=== PATIENT | female | born 1970 | race Asian ===

== ENCOUNTER → 2019-12-30 11:24 | Outpatient (CLI) | payer OTHER, SELFPAY ==
--- NOTE | ~2019-12-30 | MM_ITS ---
EXAMINATION: MM screening [facility] BI w jessica HISTORY: Screening mammogram TECHNIQUE: Craniocaudal and mediolateral oblique 3-D tomosynthesis images were obtained and synthetic 2-D images were generated. CAD analysis was submitted and interpreted. COMPARISON: 11/19/2018, 10/08/2017, 08/28/2016 BREAST PARENCHYMAL COMPOSITION: The breasts are heterogeneously dense, which may obscure small masses . FINDINGS: There is no evidence of suspicious mass, calcification, or architectural distortion to sugg est malignancy in either breast. There has been no suspicious interval change. IMPRESSION: 1. No mammographic evidence of malignancy. 2. Recommend routine screening mammography in one year. BI-RADS Category 1: Negative Reviewed, dictated and finalized at location A. HING MANAGER
== END ==
PROVIDERS: PCP Internal Medicine; Visit Provider Advanced Practice Midwife
DX: Z12.31 Encounter for screening mammogram for malignant neoplasm of breast (principal)
CPT/HCPCS: 77063; 77067

== ENCOUNTER → 2021-02-08 04:50 | Outpatient (CLI) | payer OTHER, SELFPAY ==
[2021-02-08 19:22] LABS: SARS-CoV-2 RNA PCR Negative
== END ==
PROVIDERS: PCP Internal Medicine; Visit Provider Internal Medicine Gastroenterology
DX: Z01.812 Encounter for preprocedural laboratory examination (principal); Z20.822 Contact with and (suspected) exposure to COVID-19
CPT/HCPCS: C9803; U0003; U0005

== ENCOUNTER 2021-02-11 00:53 | Day surgery (SDC) | payer OTHER, SELFPAY ==
[2021-01-29 12:09] VITALS: BMI 28.4
[2021-02-11 08:45] VITALS: BP 129/92; PULSE 75; RESP 18; TEMP 36.6; O2SAT 100; BMI 27.6
[2021-02-11] MEDS: LACTATED RINGERS 1,000 ML 150 ML IV CONT (08:57)
--- NOTE | 2021-02-11 09:04 | WPDANESEPPF ---
Anes - Initial Pre Proc Eval Procedure: Operation Date: 02/11/21 09:30 Proposed Procedures p Screening Colonoscopy - Daryl Ram MD Date/Time: 02/11/21 09:04 Surgeon: Daryl Ram MD Pre Op Diagnosis: Neoplasm Screening Patient Data Age: 50 Gender: F Height: 5 ft Weight: 64.1 kg Last Vital Signs Temp 97.8 F 02/11/21 08:45 Pulse 75 02/11/21 08:45 Resp 18 02/11/21 08:45 BP 129/92 H 02/11/21 08:45 Pulse Ox 100 02/11/21 08:45 Allergies Allergy/AdvReac Type Severity Reaction Status Date / Time No Known Allergies Allergy Verified 02/11/21 08:41 Home Medications Medication Instructions Recorded Confirmed Type No Home Medications 01/29/21 02/11/21 History Patient hx anesthesia problems: none Family hx anesthesia problems: none PMFSH Past Medical History Medical History (Updated 02/11/21 @ 09:02 by Ritchie Austin MD) Hyperlipidemia Family History Family History Mother Patient's mother is in good health Father Patient's father is in good health Social History Social History Smoking status: Never smoker Second hand tobacco smoke exposure: Yes Alcohol intake: never Substance use type: does not use Living arrangements: with family Spiritual care concerns: No Anes - Eval Final PreProcedure Day of Procedure 02/11/21 09:04 Patient weight: normal Heart: regular rate and rhythm Lungs: clear to auscultation Airway: Mallampati scale class II Neurological: alert and oriented Last oral intake: >/= 8 hours ASA classification: II Emergent: no Anesthetic plan: proceed Anesthesia type and monitoring: general GIVS and standard monitoring Informed Consent: The patient's anesthetic plan and its attendant risks and benefits were discussed with the patient/family/POA. Questions were solicited and answers provided to the satisfaction of the patient/family/POA.
--- NOTE | 2021-02-11 09:27 | PM.HPGS ---
History of Present Illness History of Present Illness Consent: Risks, benefits, and alternatives have been discussed and questions answered. Patient agrees to proceed with procedure. Chief complaint: Neoplasm Screening Narrative: Jose Antonio Granados is a 50 year old female here for first screening colonoscopy Review of Systems Constitutional: Constitutional: Denies headache(s) and Denies weakness Eyes: Eyes: Denies blurry vision ENT: Reports Normal hearing present, Denies headache(s) and Denies neck pain Cardiovascular: Cardiovascular: Denies chest pain and Denies dyspnea Respiratory: Respiratory: Denies dyspnea Gastrointestinal: Gastrointestinal: Reports no additional gastrointestinal complaints Genitourinary: Genitourinary: Denies dysuria Musculoskeletal: Musculoskeletal: Denies neck pain Integumentary/Breasts: Skin/Breast: Denies dry skin Neurologic: Reports Normal hearing present, Denies headache(s) and Denies weakness Psychiatric: Psychiatric: Denies anxiety Endocrine: Endocrine: Denies change in body appearance Hematologic/Lymphatic: Hematologic/Lymphatic: Denies easy bleeding Allergic/Immunologic: Allergic/Immunologic: Denies urticaria [facility] Past Medical History Medical History (Updated 02/11/21 @ 09:28 by Daryl Ram MD) Colon cancer screening Hyperlipidemia Family History Family History Mother Patient's mother is in good health Father Patient's father is in good health Social History Social History Smoking status: Never smoker Second hand tobacco smoke exposure: Yes Alcohol intake: never Substance use type: does not use Living arrangements: with family Spiritual care concerns: No Meds Home Medications and Allergies Home Medications Medication Instructions Recorded Confirmed Type No Home Medications 01/29/21 02/11/21 History Allergies Allergy/AdvReac Type Severity Reaction Status Date / Time No Known Allergies Allergy Verified 02/11/21 08:41 Vital Signs Vital Signs - 24 hr 02/11/21 08:45 Temperature 97.8 F Pulse Rate 75 Respiratory Rate 18 Blood Pressure 129/92 H Pulse Oximetry 100 Exam Const: General: comfortable and no acute distress HENMT: General nose exam: Normal nares present Eyes: General: appearance normal, both eyes and all related structures Neck: Neck: no JVD Resp: Auscultation: clear to auscultation bilaterally Cardio: Rate: regular rate Rhythm: regular rhythm GI: Inspection: non-distended GI Palp: Yes Soft to palpation Skin: General skin exam: normal color Neuro: General: gait normal Speech: normal speech Extrem: General: normal to inspection Psych: Mental Status: mental status grossly normal Assessment and Plan Assessment and plan (1) Colon cancer screening: Code(s): Z12.11 - Encounter for screening for malignant neoplasm of colon Status: Acute Assessment and Plan: proceed with colonoscopy
[2021-02-11 09:47] VITALS: BP 91/53; PULSE 57; RESP 20; O2SAT 100
[2021-02-11 09:57] VITALS: BP 85/56; PULSE 55; RESP 16; O2SAT 100
[2021-02-11 10:07] VITALS: BP 122/74; PULSE 50; O2SAT 100
== END 2021-02-11 10:29 | disposition home or self-care (01) ==
PROVIDERS: PCP Internal Medicine; Visit Provider Internal Medicine Gastroenterology
PROC: 0DJD8ZZ Inspection of Lower Intestinal Tract, Via Natural or Artificial Opening Endoscopic (ICD-10-PCS; CPT 45378; principal; 2021-02-11 09:30)
DX: Z12.11 Encounter for screening for malignant neoplasm of colon (principal); K63.5 Polyp of colon; K64.8 Other hemorrhoids; K57.30 Diverticulosis of large intestine without perforation or abscess without bleeding; E78.5 Hyperlipidemia, unspecified
CPT/HCPCS: 45385; 88305; C9803; J2704; J7120; U0003; U0005

== ENCOUNTER → 2021-03-08 12:25 | Outpatient (CLI) | payer OTHER, SELFPAY ==
--- NOTE | ~2021-03-08 | MM_ITS ---
EXAMINATION: MM screening [facility] BI w jessica HISTORY: Screening mammogram TECHNIQUE: Craniocaudal and mediolateral oblique 3-D tomosynthesis images were obtained and synthetic 2-D images were generated. CAD analysis was submitted and interpreted. COMPARISON: 12/30/2019, 11/19/2018, 10/08/2017 bilateral digital screening mammogram examinations BREAST PARENCHYMAL COMPOSITION: The breasts are heterogeneously dense, which may obscure small masses . FINDINGS: There is no evidence of suspicious mass, calcification, or architectural distortion to sugg est malignancy in either breast. There has been no suspicious interval change. IMPRESSION: 1. No mammographic evidence of malignancy. 2. Recommend routine screening mammography in one year. BI-RADS Category 1: Negative Reviewed, dictated and finalized at location A.
== END ==
PROVIDERS: Visit Provider Advanced Practice Midwife
DX: Z12.31 Encounter for screening mammogram for malignant neoplasm of breast (principal)
CPT/HCPCS: 77063; 77067

== ENCOUNTER → 2022-07-18 11:17 | Outpatient (CLI) | payer OTHER, SELFPAY ==
--- NOTE | ~2022-07-18 | MM_ITS ---
EXAMINATION: MM screening [facility] BI w jessica HISTORY: Screening mammogram TECHNIQUE: Craniocaudal and mediolateral oblique 3-D tomosynthesis images were obtained and synthetic 2-D images were generated. CAD analysis was submitted and interpreted. COMPARISON: 03/08/2021, 12/30/2019, 11/19/2018 bilateral screening mammogram examinations BREAST PARENCHYMAL COMPOSITION: The breasts are heterogeneously dense, which may obscure small masses . FINDINGS: There is no evidence of suspicious mass, calcification, or architectural distortion to sugg est malignancy in either breast. There has been no suspicious interval change. IMPRESSION: 1. No mammographic evidence of malignancy. 2. Recommend routine screening mammography in one year. BI-RADS Category 1: Negative Reviewed, dictated and finalized at location A.
--- NOTE | ~2022-07-18 | DEXA_ITS ---
Bone Density Report Name: DANIELA RICHARDS Age: 51 Sex: Female Ethnicity: Date of : 1970 Indication: postmenopausal; screening for osteoporosis; height loss; Referring Provider: Meghan Johnson Study: Bone densitometry was performed. Exam Date: July 18, 2022 Accession number: [id number] Bone Density: Region BMD T-score Z-score Classification AP Spine (L1-L4) 1.000 -0.4 0.5 Normal Femoral Neck (Left) 0.710 -1.2 -0.3 Osteopenia Total Hip (Left) 0.925 -0.1 0.4 Normal Femoral Neck (Right) 0.802 -0.4 0.5 Normal Total Hip (Right) 0.983 0.3 0.9 Normal Total Hip Mean 0.954 0.1 0.7 Normal World Health Organization criteria for BMD impression classify patients as: Normal (T-score at or above -1.0), Osteopenia (T-score between -1.0 and -2.5), or Osteoporosis (T-score at or below -2.5). 10-year Fracture Risk(1): Major Osteoporotic Fracture 2.7% Hip Fracture 0.2% Reported Risk Factors: [place] (), Neck BMD=0.710, BMI=29.7 (1) FRAX(R) Version 3.08. Fracture probability calculated for an untreated patient. Fracture probability may be lower if the patient has received treatment. Clinical Information Provided by Patient: Has used the following medications: Calcium, calcium includes vit D, MTV Patient maximum height was 61.75 Menopause Age: 49 No regular weight bearing exercise Does not regularly consume dairy products Drinks caffeinated beverages Onset of menses at age 11 Number of children 1 Impression: The patient has low bone mass, based on the Left Femoral Neck T-score. The patient has an estimated ten-year risk of hip fracture of 0.2% and an estimated ten-year risk of major fracture of 2.7%, based on the WHO FRAX algorithm. Discussion: BONE DENSITY IS LOW AT ONE OR MORE SKELETAL SITES. This patient's lowest T-score is low at one or more skeletal sites. It meets the World Health Organization's (WHO) criteria for ?low bone mass? (T-score between -1.0 and -2.5). The patient's 10-year risk of fracture as calculated by FRAX is less than the threshold where pharmacological therapy is recommended by the National Osteoporosis Foundation (NOF). However, all treatment decisions require clinical judgment and consideration of individual patient factors, including patient preferences, comorbidities, previous drug use, risk factors not captured in the FRAX model (e.g., frailty, falls, vitamin D deficiency, increased bone turnover, interval significant decline in bone density) and possible under or overestimation of fracture risk by FRAX. The patient should follow a healthful lifestyle (good nutrition with adequate calcium and vitamin D, and appropriate weight-bearing exercise). Follow-Up: Consider repeating this study in 2 to 3 years to reassess this patient's status, or sooner if there is
== END ==
PROVIDERS: PCP Internal Medicine; Visit Provider Advanced Practice Midwife
DX: Z12.31 Encounter for screening mammogram for malignant neoplasm of breast (principal); Z78.0 Asymptomatic menopausal state; M85.852 Other specified disorders of bone density and structure, left thigh
CPT/HCPCS: 77063; 77067; 77080

== ENCOUNTER 2023-08-08 11:18 | Outpatient (CLI) | payer OTHER, SELFPAY ==
--- NOTE | ~2023-08-08 | CT_ITS ---
EXAMINATION: CT abdomen pelvis w con DATE: 08/08/2023 11:51 INDICATION: Epigastric abdominal pain TECHNIQUE: Computed tomography (CT) of the abdomen and pelvis was performed with 100 CC Omnipaque 350 intravenous contrast. Automated exposure control and iterative reconstruction technique were employe d. Exam dose: 524.36 mGy-cm total exam DLP. COMPARISON: None. FINDINGS: Large type IV paraesophageal hiatal hernia. There is associated mild compressive atelectasi s at the left lung base. The lung bases are otherwise clear. Normal heart size. No pericardial or pleural effusion. Diffuse hepatic steatosis. 9.5 mm lateral segment left hepatic cyst. The gallbladder appears unremarkable. No gallbladder wall thickening or pericholecystic fluid or fat stranding. No bile duct or pancreatic duct dilatation. No pancreatic mass lesion or pancreatic calcif ication. No splenic mass lesion or splenomegaly. Normal morphology of the adrenal glands. The kidneys are unremarkable. No renal mass lesion or urinary tract calculus or hydroureteronephrosis . The uterus, adnexal areas and urinary bladder are unremarkable. There is atherosclerotic calcification of the abdominal aorta. No intraperitoneal or retroperitoneal or pelvic mass lesion or adenopathy or ascites. Normal appendix. Diverticulosis of left and right colon; no CT evidence of diverticulitis. No bowel obstruction, bowel wall thickening, pneumatosis or intraperitoneal free air is detected. Included skeletal structures are unremarkable. IMPRESSION: Type IV paraesophageal hiatal hernia with associated mild compressive atelectasis of the left lower lobe Hepatic steatosis 9.5 mm left hepatic cyst Diverticulosis of left and right colon; no CT evidence of diverticulitis Reviewed, dictated and finalized at Location A. Reviewed, dictated and finalized at location B. IMPRESSION: Type IV paraesophageal hiatal hernia with associated mild compress jose a atelectasis of the left lower lobe Hepatic steatosis 9.5 mm left hepatic cyst Diverticulosis of left and right colon; no CT evidence of diverticulitis
== END 2023-08-08 11:19 | disposition home or self-care (01) ==
LOC: ANHIMG 11:19
PROVIDERS: PCP Student in an Organized Health Care Education/Training Program; Visit Provider Student in an Organized Health Care Education/Training Program
DX: K44.9 Diaphragmatic hernia without obstruction or gangrene (principal); J98.11 Atelectasis; K76.0 Fatty (change of) liver, not elsewhere classified; K57.90 Diverticulosis of intestine, part unspecified, without perforation or abscess without bleeding; K76.89 Other specified diseases of liver
CPT/HCPCS: 74177; Q9967

== ENCOUNTER 2023-08-11 16:50 | Outpatient (CLI) | payer OTHER, SELFPAY ==
--- NOTE | ~2023-08-11 | MM_ITS ---
EXAMINATION: MM screening [facility] BI w jessica HISTORY: Screening mammogram TECHNIQUE: Craniocaudal and mediolateral oblique 3-D tomosynthesis images were obtained and synthetic 2-D images were generated. CAD analysis was submitted and interpreted. COMPARISON: 07/18/2022, 03/08/2021, 12/30/2019 BREAST PARENCHYMAL COMPOSITION:There are scattered areas of fibroglandular density. FINDINGS: No suspicious mass, calcification, or architectural distortion are identified in either evangelina ast to suggest malignancy. There has been no suspicious interval change. IMPRESSION: No mammographic evidence of malignancy. Recommend routine screening mammography in one year. BI-RADS Category 1: Negative Reviewed, dictated and finalized at location .
== END 2023-08-11 16:51 | disposition home or self-care (01) ==
PROVIDERS: PCP Student in an Organized Health Care Education/Training Program; Visit Provider Obstetrics & Gynecology
DX: Z12.31 Encounter for screening mammogram for malignant neoplasm of breast (principal)
CPT/HCPCS: 77063; 77067

== ENCOUNTER 2024-09-02 08:32 | Outpatient (CLI) | payer OTHER, SELFPAY ==
--- NOTE | ~2024-09-02 | US_ITS ---
US abdomen limited INDICATION: Fatty liver disease. PROCEDURE: Realtime right upper abdominal ultrasound. COMPARISON: No prior studies for comparison. FINDINGS: The pancreas is normal without focal mass or pancreatic ductal dilation. Liver echotexture is increased, consistent with fatty infiltration. There is normal directional flow in the portal ve in. The gallbladder is normal without stones, gallbladder wall thickening or pericholecystic fluid. Comm on bile duct measures 3 mm. No sonographic Santana's sign. IMPRESSION: 1: Fatty infiltration of the liver. Reviewed, dictated and finalized at location B.
== END 2024-09-02 08:33 | disposition home or self-care (01) ==
LOC: GOSHIMG 08:33
PROVIDERS: PCP Student in an Organized Health Care Education/Training Program; Visit Provider Student in an Organized Health Care Education/Training Program
DX: K76.0 Fatty (change of) liver, not elsewhere classified (principal)
CPT/HCPCS: 76705

== ENCOUNTER 2024-09-06 15:23 | Outpatient (CLI) | payer OTHER, SELFPAY ==
--- NOTE | ~2024-09-06 | MM_ITS ---
EXAMINATION: MM screening [facility] BI w jessica HISTORY: Screening mammogram TECHNIQUE: Craniocaudal and mediolateral oblique 3-D tomosynthesis images were obtained and synthetic 2-D images were generated. CAD analysis was submitted and interpreted. COMPARISON: 08/11/2023, 07/18/2022, 03/08/2021, 12/30/2019 BREAST PARENCHYMAL COMPOSITION:Not Dense. There are scattered areas of fibroglandular density. FINDINGS: No suspicious mass, calcification, or architectural distortion are identified in either evangelina ast to suggest malignancy. There has been no suspicious interval change. IMPRESSION: No mammographic evidence of malignancy. Recommend routine screening mammography in one year. BI-RADS Category 1: Negative Reviewed, dictated and finalized at location .
== END 2024-09-06 15:24 | disposition home or self-care (01) ==
PROVIDERS: PCP Student in an Organized Health Care Education/Training Program; Visit Provider Obstetrics & Gynecology
DX: Z12.31 Encounter for screening mammogram for malignant neoplasm of breast (principal)
CPT/HCPCS: 77063; 77067

== ENCOUNTER 2024-11-07 09:02 | Outpatient (CLI) | payer OTHER, SELFPAY ==
--- NOTE | ~2024-11-07 | MR_ITS ---
EXAMINATION: MR shoulder LT wo con DATE: 11/07/2024 09:47 INDICATION: Chronic left shoulder pain TECHNIQUE: Magnetic resonance imaging (MRI) of the left shoulder was performed without intravenous co ntrast. Sequences included axial PD-weighted FS FSE, coronal oblique PD-weighted FS FSE, coronal obli que T2-weighted FS FSE, sagittal PD-weighted FS FSE, and sagittal T1-weighted SE. COMPARISON: None. FINDINGS: Coracoacromial arch: The acromion undersurface is curved in morphology (type II). The coracoacromial ligament is normal. M inimal acromioclavicular osteoarthritis. Rotator cuff: Mild supraspinatus and infraspinatus tendinopathy without tear. The teres minor and subscapularis ten dons are normal. Normal rotator cuff muscle bulk and signal. Biceps tendon, glenoid labrum and glenohumeral cartilage: Long head of the biceps tendon is normal. Small region of mild amorphous increased signal consistent with labral degeneration at the 10:30-11:00 position of the posterior superior glenoid labrum. Glenoh umeral cartilage is normal. Fluid: Physiologic amount of fluid in the glenohumeral joint and biceps tendon sheath. No loose osteochondr al bodies. Small amount of fluid in the subacromial/subdeltoid bursa consistent with mild bursitis. Bones: Normal marrow signal with no edema, fracture or abnormal marrow replacing process. IMPRESSION: 1. Mild supraspinatus and infraspinatus tendinopathy without tear. 2. Small region of mild degeneration of the posterior superior glenoid labrum. 3. Mild subacromial/subdeltoid bursitis. Reviewed, dictated and finalized at location B. L MAID
--- NOTE | ~2024-11-07 | MR_ITS ---
EXAMINATION: MR shoulder RT wo con DATE: 11/07/2024 09:34 INDICATION: Chronic right shoulder pain TECHNIQUE: Magnetic resonance imaging (MRI) of the right shoulder was performed without intravenous c ontrast. Sequences included axial PD-weighted FS FSE, coronal oblique PD-weighted FS FSE, coronal obl ique T2-weighted FS FSE, sagittal PD-weighted FS FSE, and sagittal T1-weighted SE. COMPARISON: None. FINDINGS: Coracoacromial arch: The acromion undersurface is curved in morphology (type II). The coracoacromial ligament is normal. M ild acromioclavicular osteoarthritis. Rotator cuff: Moderate tendinopathy of the supraspinatus and anterior infraspinatus tendon. Mild tendinopathy more posterior infraspinatus tendon and the subscapularis tendon. No evident rotator cuff tear. The teres minor tendon is normal. Normal rotator cuff muscle bulk and signal. Biceps tendon, glenoid labrum and glenohumeral cartilage: Long head of the biceps tendon is normal. There is a superior, anterior to posterior tear of the nirali oid labrum (SLAP tear) at the 11:00-12:00 position of the superior glenoid labrum. Glenohumeral carti tony is normal. Fluid: Physiologic amount of fluid in the glenohumeral joint and biceps tendon sheath. No loose osteochondr al bodies. Synovitis and small to moderate amount of fluid in the subacromial/subdeltoid bursa consis tent with moderate bursitis. Bones: Normal marrow signal with no edema, fracture or abnormal marrow replacing process. IMPRESSION: 1. Mild to moderate rotator cuff tendinopathy without tear. 2. SLAP tear at the superior glenoid labrum. 3. Moderate subacromial/subdeltoid bursitis. 4. Mild acromioclavicular osteoarthritis. Reviewed, dictated and finalized at location B. 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
== END 2024-11-07 09:03 | disposition home or self-care (01) ==
LOC: MICIMG 09:02
PROVIDERS: PCP Student in an Organized Health Care Education/Training Program; Visit Provider Student in an Organized Health Care Education/Training Program
DX: S43.431A Superior glenoid labrum lesion of right shoulder, initial encounter (principal); G89.29 Other chronic pain; M67.814 Other specified disorders of tendon, left shoulder; M75.52 Bursitis of left shoulder; M19.012 Primary osteoarthritis, left shoulder; M75.31 Calcific tendinitis of right shoulder; M75.51 Bursitis of right shoulder; M19.011 Primary osteoarthritis, right shoulder; X58.XXXA Exposure to other specified factors, initial encounter
CPT/HCPCS: 73221

== ENCOUNTER 2025-07-05 21:03 | Emergency (ER) | payer BC, SELFPAY ==
--- NOTE | ~2025-07-05 | CT_ITS ---
EXAMINATION: CT BRAIN W/O DATE: 07/05/2025 23:03 INDICATION: Dizziness. Hypertension. TECHNIQUE: Computed tomography (CT) of the head was performed without intravenous contrast. The dose-length product was 605.33 mGy-cm. Automated exposure control and iterative reconstruction technique were employed. COMPARISON: No prior studies for comparison. FINDINGS: Normal brain parenchymal volume for age. Normal mcdonald-white differentiation. No acute intracranial hemorrhage, infarction, mass or mass effect. No ventriculomegaly or midline shift. Midline sagittal images demonstrate a normal corpus callosum, craniovertebral junction and sella turcica. Basilar cisterns are patent. Paranasal sinuses and mastoids are pneumatized. No depressed skull fractures. IMPRESSION: 1. No acute intracranial abnormality. Reviewed, dictated and finalized at location O.
[2025-07-05 21:13] VITALS: BP 190/97; PULSE 65; RESP 16; TEMP 36.2; O2SAT 100
--- NOTE | 2025-07-05 22:23 | ECG_ITS ---
Test Date: 2025-07-05 22:51:47 Measurements Intervals [place] Rate: 57 P: 23 RI: 155 QRS: 17 QRSD: 82 T: 16 QT: 452 QTc: 443 Interpretive Statements SINUS BRADYCARDIA LOW QRS VOLTAGE IN PRECORDIAL LEADS BASELINE ARTIFACT- I, II, III, AVR, AVL, AVF, V1-V6 BORDERLINE ECG No previous ECG available for comparison Electronically Signed On 07-06-2025 06:15:04 CDT by Will Daly D.O.
--- OUTSIDE RECORDS SUMMARY | 2025-07-05 22:37 | XMS_ITS | Clinical Summary ---
Author Organization [facility] Address [address] [place] [address] Care Team Providers Care Informix Developer Name Role Phone Unknown, Provider Primary Care Provider Unavaila ble Source Comments [facility],non-owned Affiliates and Associated Physician Practices is amultiple site organization consisting of ambulatory clinics and hospital sitesin [place], [place], [place] and [place]. This disclosure is being madepursuant to the Care Everywhere program and may not contain all information available regarding this patient. Last updated 18.[facility] Encounters Date Type Department Care Team Description 06/22/[address] 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 Gender Identity Not on file Sexual Orientation Not on file Plan of Treatment Health Maintenance Due Date Last Done Comments COLOGUARD (AGES 45-75) - COL ON CA SCREENING 1969 COLON MONITORING 1969 COLONOSCOPY - COLON CA SCREENING 1969 CT COLONOGRAPHY - COLON CA SCREENING 1969 Colorectal Cancer Screening 1969 FIT - COLON CA SCREENING 1969 FLEX SIG - COLON CA SCREENING 1969 HIV SCREENING 1984 DTAP/TDAP/TD VACCINES (1 - Tdap) 1988 HEPATITIS B VACCINE (1 of 3 - 19+ 3-dose series) 1988 PNEUMOCOCCAL VACCINE 50+ (1 of 1 - PCV) 2019 ZOSTER VACCINE (1 of 2) 2019 COVID-19 VACCINE (1 - 2023-2 5 season) 2024 DEPRESSION SCREENING 11/09/2024 INFLUENZA VACCINE (#1) 2025 MAMMOGRAM 09/06/2026 09/06/2024, 08/11/2023, 07/18/2022 PAP SMEAR 07/29/2027 07/29/2024, 07/29/2024 LIPID TESTING 05/05/2030 05/05/2025 HEPATITIS C SCREENING Completed 04/17/2023 HIB VACCINE Aged Out No longer eligi ble based on patient's age to complete this topic HPV VACCINE Aged Out No longer eligi ble based on patient's age to complete this topic MENINGOCOCCAL (Group B) VACCINE SHARED DECISION-MAKING Aged Out No longer eligible based on patient's age to complete this topic MENINGOCOCCAL GROUPS A/C/Y/W VACCINE Aged Out No longer eligible b ased on patient's age to complete this topic Procedures Procedure Name Priority Date/Time Associated Diagnosis Comments DERMATOPATHOLOGY Routine 06/22/2025 3:14 PM CDT US ELASTOGRAPHY Routine 06/09/2025 8:14 AM CDT NAFLD (nonalcoholic fatty liver disease) from Last 3 Months Results * DERMATOPATHOLOGY (06/22/2025 3:14 PM CDT) Case Report Dermatopathology Report Case: [id number] Authorizing Provider: Nataly Ball DO Collected: 06/22/2025 03:14 PM Ordering Location: [facility] - Received: 06/26/2025 02:19 PM DermPath Lab Pathologist: Jena Rodriguez MD Specimen: Skin, left scalp 4:38 PM CDT DERMATOPATHOLOGY LABORATORY Final Diagnosis Specimen A. 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 The specimen consists of a shave biopsy measuring 6x3x1 mm. Jar 0. 4:38 PM CDT DERMATOPATHOLOGY LABORATORY Microscopic Description Specimen A. SKIN, left scalp: Sections show abundant melanin within melanophages around the superficial vascular plexus. MART-1/Melan-A immunohistochemical stain fails to highlight a melanocytic proliferation. Additional deeper sections were obtained and reviewed. 4:38 PM CDT DERMATOPATHOLOGY LABORATORY Disclaimer An external and internal positive and negative controls are appropriate for the histochemical, immunohistochemical and immunofluorescence stain(s) in this case (if any), except where stated explicitly. The performance characteristics of the stain(s) cited in this report were developed and its performance characteristic determined by the Dermatopathology Laboratory at [facility], directed by Dr. Janna Gaytan. These tests need not be, and therefore are not, approved by the [place] Food and Drug Administration. The tests are used for clinical purposes. Billing Codes Specimen Charges Stain Charges 58785 1 52888 1 4:38 PM CDT DERMATOPATHOLOGY LABORATORY Embedded Images 4:38 PM CDT DERMATOPATHOLOGY LABORATORY Pathology/Cytolo gy TISSUE SPECIMEN FROM SKIN / Unknown 06/22/2025 3:14 PM CDT 06/26/2025 2:19 PM CDT us Nataly Ball DO LAB - PATHOLOGY/CYTOLOGY ORDERABLES Final Result DERMATOPATHOLOGY LABORATORY [facility] - Department of Dermatology [address], [address] [phone] * US Elastography (06/09/2025 8:14 AM CDT) Anatomical Region Laterality Modality Abdomen Ultrasound 06/09/2025 8:15 AM CDT Impressions 06/09/2025 10:59 AM CDT Impression: Stiffness Score: Median 5.08 kPa. IQR/Median ratio: 11.1. (Ratio should be less than 30%). These result suggests that in the absence of other known clinical signs, rule out compensated advanced chronic liver disease (cACLD). If there is known clinical signs, May need for test for confirmation. Reference: <5 kPa (1.3 m/sec)- High probability of being normal. <9 kPa (1.7 m/sec)- in the absence of other known clinical signs, rule out compensated advanced chronic liver disease (cACLD). If there is known clinical signs, May need for test for confirmation. 9-13 kPa (1.7-2.1 m/sec)-suggestive of cACLD but need for test for confirmation. >13 kPa (2.1 m/sec)- Rule in cACLD >17 kPa (2.4m/sec)- suggestive of clinically significant portal hypertension (CSPH). > Dictated by Roxana Dove 06/09/2025 8:15 AM > Dictated by Labor Conciliator I, Mulugeta Chester have personally reviewed and interpreted this examination/study. > Interpreting Provider: Mulugeta Chester on 06/09/2025 10:59 AM Narrative 06/09/2025 10:59 AM CDT PROCEDURE: US ELASTOGRAPHY, DATE/TIME OF EXAM: 06/09/2025 8:14 AM, LOCATION [facility] INDICATION: K76.0: NAFLD (nonalcoholic fatty liver disease) ADDITIONAL CLINICAL INFORMATION: Ordering Provider Reason For Exam: NAFLD Technologist Note: Additional: COMPARISON: None. Technique: A limited abdominal ultrasound was performed by using real-time and B-Mode to localize an optimal sampling site, to target only liver tissue. 50Hz Shear Wave pulses were applied and the resulting Shear Wave and Propagation Speed detected with an ultrasonic signal, using US Elastography. Skin to liver capsule distance and liver parenchyma were accessed during the entire examination with the US Elastography. At least ten Shear Waves were produced; individual measurements of each Shear Wave were calculated. Patient tolerated the procedure well and was discharged without incident. Findings: The median liver stiffness score was 5.08 kPa. The Interquartile Range (IQR) to Median ratio all measurement 11.1 %. Procedure Note Mulugeta Chester MD - 06/09/2025 PROCEDURE: US ELASTOGRAPHY, DATE/TIME OF EXAM: 06/09/2025 8:14 AM,LOCATION [facility] INDICATION: K76.0: NAFLD (nonalcoholic fatty liver disease) ADDITIONAL CLINICAL INFORMATION: Ordering Provider Reason For Exam: NAFLD Technologist Note: Additional: COMPARISON: None. Technique: A limited abdominal ultrasound was performed by usingreal-time and B-Mode to localize an optimal sampling site, to target only liver tissue. 50Hz Shear Wave pulses were applied and the resulting Shear Wave and Propagation Speed detected with an ultrasonic signal, using US Elastography. Skin to liver capsule distance and liver parenchyma were accessed during the entire examination with the US Elastography. At least ten Shear Waves were produced; individual measurements of each Shear Wave were calculated. Patient tolerated the procedure well and was discharged withoutincident. Findings: The median liver stiffness score was 5.08 kPa. The Interquartile Range (IQR) to Median ratio all measurement 11.1 %. Impression: Stiffness Score: Median 5.08 kPa. IQR/Median ratio: 11.1. (Ratio shouldbe less than 30%). These result suggests that in the absence of other known clinicalsigns, rule out compensated advanced chronic liver disease (cACLD). If there is known clinical signs, May need for test for confirmation. Reference: <5 kPa (1.3 m/sec)- High probability of being normal. <9 kPa (1.7 m/sec)- in the absence of other known clinical signs, ruleout compensated advanced chronic liver disease (cACLD). If there is known clinical signs, May need for test for confirmation. 9-13 kPa (1.7-2.1 m/sec)-suggestive of cACLD but need for test for confirmation. >13 kPa (2.1 m/sec)- Rule in cACLD >17 kPa (2.4m/sec)- suggestive of clinically significant portal hypertension (CSPH). > Dictated by Roxana Dove 06/09/2025 8:15 AM > Dictated by Labor Conciliator I, Mulugeta Chester have personally reviewed and interpreted this examination/study. > Interpreting Provider: Mulugeta Chester on 06/09/2025 10:59 AM us Pee Rider DO US ORDERABLES Final Re sult from Last 3 Months [place] [facility] [place]: [facility] [id number] [place] [id number] [address] [facility] Care Teams Informix Developer Relationship Specialty Start Date End Date Unknown, Provider PCP - General 06/02/25
--- OUTSIDE RECORDS SUMMARY | 2025-07-05 22:38 | XMS_ITS | Encounter Summary ---
Author Organization [facility] Address [address] [place] [address] Care Team Providers Care Hospital Scientist Name Role Phone Pee Rider DO Primary Care Provider + Encounter Details Date Type Department Care Team (Late st Contact Info) Description 05/08/2025 Results Follow-Up [facility] Family & Internal Medicine [facility] [address] [place] [phone] Pee Rider DO [address] [place], [place] [id number] HEMOGLOBIN, GLYCOSYLATED, VITAMIN B-12, LIPID PANEL, Additional followed-up results: 3 Social History Tobacco Use Types Packs/Day Years Used Date Smoking Tobacco: Never Passive Smoke Exposure: Current Smokeless Tobacco: Never Alcohol Use Standard Drinks/Week Comments Not Currently 0 (1 standard drink = 0.6 oz pur e alcohol) rarely PHQ-2 Answer Date Recorded Patient Health Questionnaire-2 Score 0 05/05/2025 Comments No Sex and Gender Information Value Date Recorded Sex Assigned at Female 05/05/2025 9:03 AM CDT Legal Sex Female 11:44 AM CDT Gender Identity Female 05/05/2025 9:03 AM CDT Sexual Orientation Not on file Occupation Industry Job Start Date Job End Date Not on file Not on file Not on file Not on file documented as of this encounter Plan of Treatment Upcoming Encounters Date Type Department Care Team (Late st Contact Info) Description 07/14/2025 1:00 PM CDT Office Visit [facility] Multispecialty Care - [facility] [address] [facility], [address] [place] [address] Abigail Medrano, HA [address] [facility] [address] [place] [address] 08/04/2025 9:00 AM CDT Office Visit [facility] Family & Internal Medicine - [address] [address] Pee Rider DO [address] [place] [phone] documented as of this encounter Visit Diagnoses Not on filedocumented in this encounter Additional Health Concerns Assessment Noted Time PHQ-9 Depression Total Score: 1 05/05/20 25 9:11 AM CDT documented as of this encounter Care Teams Hospital Scientist Relationship Specialty Start Date End Date Pee Rider DO [address] [place] [id number] PCP - General FAMILY PRACTICE 04/17/23 documented as of this encounter
--- OUTSIDE RECORDS SUMMARY | 2025-07-05 22:38 | XMS_ITS | Clinical Summary ---
Author Organization [facility] Address [address] [place] [phone] Care Team Providers Care Audit Spec Name Role Phone Pee Rider Javier PADRON Primary Care Provide r Allergies No known active allergies Medications multivitamin capsule Take 1 capsule by mouth daily Active omega-3 fatty acids-fish oil 300-1,000 mg capsule Take 2 capsules (2 g total) by mouth daily Active cholecalciferol (VITAMIN D-3) 2000 unit tablet Take 1 tablet (2,000 Units total) by mouth daily Active simethicone (MYLICON) 125 mg chewable tablet Take 1 tablet (125 mg total) by mouth every 6 (six) hours 120 tablet 11 12/18/2023 Active Active Problems Problem Noted Date Diagnosed Date Paraesophageal hernia 12/18/2023 Surgical History Surgery Date Site/Laterality Comments SECTION MOLE REMOVAL back BREAST BIOPSY Left HIATAL HERNIA REPAIR 12/10/2023 - 01/07/2024 Medical History Medical History Date Comments Motion sickness mostly planes/jeimy at Allergic rhinitis spring Dry scalp GERD (gastroesophageal reflux disease) Family History Medical History Relation Name Comments Hypertension Mother Dementia Sister Relation Name Status Comments Father Mother Alive Sister Social History Tobacco Use Types Packs/Day Years Used Date Smoking Tobacco: Never Passive Smoke Exposure: Current Smokeless Tobacco: Never AUDIT-C Answer Date Recorded Q1: How often do you have a drink containing alc ohol? Monthly or less 08/04/2024 Q2: How many drinks containi ng alcohol do you have on a typical day when you are drinking? 1 or 2 08/04/2024 Q3: How often do you have si x or more drinks on one occasion? Never 08/04/2024 Personal Safety Answer Date Recorded Have you ever been in or are you currently in a harmful physical or emotional relationship or is someone making you feel afraid or unsafe? 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 Gender Identity Not on file Sexual Orientation Not on file Obstetrics History Last Filed Vital Signs Vital Sign Reading Time Taken Comments Blood Pressure 144/84 08/04/2024 4:10 PM CDT Pulse 69 08/04/2024 4:10 PM CDT Temperature 36.3 C (97.3 F) 08/04/2024 3:38 PM CDT Respiratory Rate 19 08/04/2024 4:10 PM CDT Oxygen Saturation 100% 08/04/2024 4:10 PM CDT Inhaled Oxygen Concentration - - Weight 63.5 kg (140 lb) 12/18/2023 5:58 AM PARTITION MAKING MACHINE OPERATOR Height 149.9 cm (4' 11) 12/18/2023 5:58 AM PARTITION MAKING MACHINE OPERATOR Body Mass Index 28.28 12/18/2023 5:58 AM PARTITION MAKING MACHINE OPERATOR Plan of Treatment Health Maintenance Due Date Last Done Comments Cervical Cancer Screening 1969 Colon Cancer Screening-Colonoscopy 1969 Depression Screening 1969 Hepatitis C Screening 1969 Hepatitis B Screening 1987 Regular Well Visit/Exam 18-64 1987 Zoster Vaccine (1 of 2) 2019 Covid-19 Vaccine (2023-2 5 season) 2024 10/11/2021, 01/31/2021, 01/10/2021 Breast Cancer Screening-Mammogram 08/12/2024 08/12/2023, 07/18/2022 Influenza Vaccine (#1) 2025 DTaP/Tdap/Td Vaccine (2 - Td or Tdap) 10/09/2033 10/09/2023 Pneumococcal vaccine <65 Aged Out No longer eligible based on patient's age to complete this topic Insurance LOCAL PLUS IN LOCAL PLUS IN Advance Directives For more information, please contact: [phone] * Full Code (Latest Code Status on File) Date Activated Date Inactivated Comments 12/18/2023 12:13 PM 12/19/2023 7:24 PM Care Teams Audit Spec Relationship Specialty Start Date End Date Pee Rider DO [address] [place] [id number] PCP - General Family Medicine 12/18/23
--- OUTSIDE RECORDS SUMMARY | 2025-07-05 22:38 | XMS_ITS | Clinical Summary ---
Author Organization [facility] Address [address] [place] [address] Care Team Providers Care Cigar Head Pegger Name Role Phone Pee Rider Peyton PADRON Primary Care Provider + Allergies Active Allergy Reactions Criticality Noted Date Comments Seasonal Eyes Water & Itch 05/05/2025 Medications multi vitamin/minerals (THERA-M ENHANCED) tablet Take 1 tablet by mouth daily. Active [place] 3 1000 MG Cap Take 2 g by mouth daily. Active Vitamin D3 (VITAMIN D) 50 mcg tablet Take 1 tablet (2,000 Units total) by mouth daily. Active [facility] GAS RELIEF EXTRA STRENGTH 125 MG chewable tablet CHEW 1 TABLET BY MOUTH 4 TIMES A DAY 4 Active clobetasol (TEMOVATE) 0.05 % external solutionIndicatio ns:Rash,Encounter for preventative adult health care examination,Scree atilio for lipid disorders,Screeni ng for endocrine, metabolic and immunity disorder Apply topically 2 (two) times daily. 50 mL Active Active Problems Problem Noted Date Diagnosed Date NAFLD (nonalcoholic fatty liver disease) 024 Epigastric pain 04/17/2023 Hyperlipidemia, unspecified hyperlipidemia type 04/17/2023 Resolved Problems Problem Noted Date Diagnosed Date Resolved Date Paraesophageal hernia 12/18/20232023 Encounters Date Type Department Care Team Description 06/09/2025 Scan [facility] Scanned, [facility] Ultrasound (SCAN) 06/09/2025 Telephone [facility] Family & Internal Medicine [address] [address] Pee Rider, DO Radiology Results 05/22/[address] [phone] Pee Rider, DO Information 05/11/[address] [address] Pee Rider, DO Referral 05/08/2025 Results Follow-Up [address] [phone] Pee Rider, DO HEMOGLOBIN, GLYCOSYLATED, VITAMIN B-12, LIPID PANEL, Additional followed-up results: 3 05/05/2025 9:00 AM CDT Office Visit [address] [address] Pee Rider, DO Hyperlipidemia (Annual exam); Numbness (In both hands, 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 Right works better than left) 05/05/2025 Travel from Last 3 Months Immunizations Immunization Administration Dates Next Due Pneumococcal (Prevnar 20) 08/26/2024 Shingrix 11/08/2024,08/24/2024 Tdap (Adacel) 10/09/2023 Family History Medical History Relation Comments Dementia Father Hypertension Father Hypertension Mother Relation Status Comments Father (Age 84) Mother Alive Social History Tobacco Use Types Packs/Day Years Used Date Smoking Tobacco: Never Passive Smoke Exposure: Current Smokeless Tobacco: Never Tobacco Cessation:Counseling Given: Not Answered Alcohol Use Standard Drinks/Week Comments Not Currently [...] file Not on file Not on file Last Filed Vital Signs Vital Sign Reading Time Taken Comments Blood Pressure 126/74 05/05/2025 8:55 AM CDT Pulse 62 05/05/2025 8:55 AM CDT Temperature 36.7 C (98.1 F) 05/05/2025 8:55 AM CDT Respiratory Rate 16 05/05/2025 8:55 AM CDT Oxygen Saturation 96% 05/05/2025 8:55 AM CDT Inhaled Oxygen Concentration - - Weight 64.9 kg (143 lb) 05/05/2025 8:55 AM CDT Height 149.9 cm (4' 11) 05/05/2025 8:55 AM CDT Body Mass Index 28.88 05/05/2025 8:55 AM CDT Plan of Treatment Upcoming Encounters Date Type Department Care Team (Late st Contact Info) Description 07/14/2025 1:00 PM CDT Office Visit [facility] - [facility] [address] [facility], [address] [place] [phone] Abigail Medrano NP 3 [facility] [address] [place] [phone] 08/04/2025 9:00 AM CDT Office Visit [facility] Family & Internal Medicine - [address] [phone] Pee Rider, DO [address] [place] [address] Health Maintenance Due Date Last Done Comments Hepatitis B Vaccines (1 of 3 - 19+ 3-dose series) 1988 Cervical Cancer Screening González ramos with HPV Testing (Age 30 to 64) Every 5 Years 1999 COVID-19 Vaccine (2023-2 5 season) 2025 10/11/2021, 01/31/2021, 01/10/2021 Postponed from 07/10/2024 (Patient Refused) Mammogram Screening 09/06/2025 09/06/2024, 08/11/2023, 07/18/2022 Colorectal Cancer Screening Colonoscopy (10 Years) 02/11/2026 02/11/2021, 02/11/2021 Annual Physical 05/05/2026 05/05/2025, 04/15/2024 Cervical Cancer Screening Pa p Smear (Age 30 to 64) Every 3 Years 07/29/2027 07/29/2024, 04/04/2022 Cervical Cancer Screening with HPV 07/29/2027 DTaP, Tdap and Td Vaccines ( 2 - Td or Tdap) 10/09/2033 10/09/2023 Hepatitis C Completed 04/17/2023 Pneumococcal Vaccine: 50+ Years Completed 08/26/2024 Zoster Vaccines Completed 11/08/2024, 08/24/2024 PHQ-2 (Physician [place]) Completed 05/05/2025 Meningococcal B Vaccine Aged Out No l onger eligible based on patient's age to complete this topic Meningococcal Vaccine Aged Out No teofilo karen eligible based on patient's age to complete this topic RSV Immunizations Under 20 Months Aged Out No longer eligible b ased on patient's age to complete this topic Procedures Procedure Name Priority Date/Time Associated Diagnosis Comments ULTRASOUND GENERIC (SCAN ORDER) 06/09/2025 CBC W/DIFF AUTOMATED Routine 05/05/2025 10:02 AM CDT Encounter for preventative adult health care examination Screening for lipid disorders Screening for endocrine, metabolic and immunity disorder COMPREHENSIVE METABOLIC PANEL Routine 05/05/2025 10:02 AM CDT Encounter for preventative adult health care examination Screening for lipid disorders Screening for endocrine, metabolic and immunity disorder TSH W/REFLEX Routine 05/05/2025 10:02 AM CDT Encounter for preventative adult health care examination Screening for lipid disorders Screening for endocrine, metabolic and immunity disorder LIPID PANEL Routine 05/05/2025 10:02 AM CDT Encounter for preventative adult health care examination Screening for lipid disorders Screening for endocrine, metabolic and immunity disorder VITAMIN B-12 Routine 05/05/2025 10:02 AM CDT Encounter for preventative adult health care examination Screening for lipid disorders Screening for endocrine, metabolic and immunity disorder Bilateral hand numbness HEMOGLOBIN, GLYCOSYLATED Routine 05/05/2025 10:02 AM CDT Encounter for preventative adult health care examination Screening for lipid disorders Screening for endocrine, metabolic and immunity disorder Bilateral hand numbness COLLECTION VENOUS BLOOD VENIPUNCTURE Routine 05/05/2025 9:37 AM CDT Encounter for preventative adult health care examination Screening for lipid disorders Screening for endocrine, metabolic and immunity disorder MAMMOGRAM GENERIC (SCAN ORDER) 09/06/2024 HEPATITIS C ANTIBODY Routine 04/17/2023 8:32 AM CDT Screening for lipid disorders Screening for endocrine, metabolic and immunity disorder Need for hepatitis C screening test COLONOSCOPY GENERIC (SCAN ORDER) 02/11/2021 from Last 3 Months or Most Recently Relevant to Health Maintenance Results * ULTRASOUND GENERIC (SCAN ORDER) (06/09/2025) Anatomical Region Laterality Modality Other 06/09/2025 us [facility] Scanned SCANNING Final Resu lt * TSH W/REFLEX (05/05/2025 10:02 AM CDT) TSH 1.290 0.358 - 3.740 uIU/ML 05/05/2025 4:52 PM CDT [facility] 05/05/2025 10:0 2 AM CDT Pee Rider DO LABORATORY Final Re sult [facility] [address] [place] [address], [place] [phone] * (ABNORMAL) HEMOGLOBIN, GLYCOSYLATED (05/05/2025 10:02 AM CDT) HGB A1C 6.0 4.5 - 6.2 % 05/05/2025 8:21 PM CDT [facility] ESTIMATED AVG GLUCOSE 126(H) 74 - 106 MG/DL 05/05/2025 8:21 PM CDT [facility] 05/05/2025 10:0 2 AM CDT Pee Rider LABORATORY Final Re sult [facility] [address] [place] [address], [place] [phone] * VITAMIN B-12 (05/05/2025 10:02 AM CDT) VITAMIN B12 S/P/B 707 193 - 986 PG/ML 05/05/2025 4:52 PM CDT [facility] 05/05/2025 10:0 2 AM CDT Pee Rider LABORATORY Final Re sult Performing Organization Address City/[facility]/ZIP Co de Phone Number [facility] [address] [place] [address], [place] [phone] * (ABNORMAL) COMPREHENSIVE METABOLIC PANEL (05/05/2025 10:02 AM CDT) SODIUM S/P/B 143 136 - 145 MMOL/L 05/05/2025 4:52 PM CDT [facility] POTASSIUM S/P/B 4.9 3.5 - 5.1 MMOL/L 05/05/2025 4:52 PM CDT [facility] CHLORIDE S/P/B 105 98 - 107 MMOL/L 05/05/2025 4:52 PM CDT [facility] CO2 29.8 21 - 32 MMOL/L 05/05/2025 4:52 PM CDT [facility] GLUCOSE 101(H) 70 - 99 MG/DL 05/05/2025 4:52 PM CDT [facility] BUN 10 7 - 18 MG/DL 05/05/2025 4:52 PM T [facility] CREATININE S/P/B 0.60 0.55 - 1.02 MG/DL 05/05/2025 4:52 PM [facility] CALCIUM S/P/B 9.9 8.4 - 10.5 MG/DL 05/05/2025 4:52 PM [facility] BILIRUBIN TOTAL S/P/B 1.1(H) 0.2 - 1.0 MG/DL 05/05/2025 4:52 PM [facility] ALKALINE PHOSPHATASE S/P/B 63 41 - 108 U/L 05/05/2025 4:52 PM [facility] AST 20 15 - 37 U/L 05/05/2025 4:52 PM CDT [facility] ALT 29 14 - 59 U/L 05/05/2025 4:52 PM [facility] TOTAL PROTEIN S/P/B 7.4 6.4 - 8.2 G/DL 05/05/2025 4:52 PM [facility] ALBUMIN S/P/B 4.2 3.4 - 5.0 G/DL 05/05/2025 4:52 PM CDT [facility] ANION GAP 8.2 5 - 15 MMOL/L 05/05/2025 4:52 PM T [facility] Comment:REFERENCE RANGE NOT ESTABLISHED OSMOLALITY (CALC) 295 MOSM/KG 025 4:52 PM [facility] Comment:REFERENCE RANGE NOT ESTABLISHED GFR ESTIMATE >90 >90 ML/MIN/1. 73 M2 05/05/2025 4:52 PM [facility] GFR NOTES GFR REFERENCE S: 05/05/2025 4:52 PM CDT [facility] Comment: THE ESTIMATED GFR IS CALCULATED USING THE 2020 CKD-EPI EQUATION. THE FOLLOWING CATEGORIES FOR GRADING RENAL FUNCTION ARE RECOMMENDED BY THE INTERNATIONAL SOCIETY OF NEPHROLOGY (KDIGO 2012 CLINICAL PRACTICE GUIDELINE). G1,NORMAL OR HIGH: >89 ml/min/1.73 m2 G2,MILDLY DECREASED: 60-89 ml/min/1.73 m2 G3A,MILDLY TO MODERATELY DECREASED: 45-59 ml/min/1.73 m2 G3B,MODERATELY TO SEVERELY DECREASED: 30-44 ml/min/1.73 m2 G4,SEVERELY DECREASED: 15-29 ml/min/1.73 m2 G5,KIDNEY FAILURE: <15 ml/min/1.73 m2 05/05/2025 10:0 2 AM CDT Pee Rider DO LABORATORY Final Re sult [facility] [address] [place] [address], * (ABNORMAL) LIPID PANEL (05/05/2025 10:02 AM CDT) CHOLESTEROL 235(H) <200 MG/DL 05/05/2025 4:52 PM CDT [facility] TRIGLYCERIDES 68 <150 MG/DL 05/05/2025 4:52 PM CDT [facility] HDL 61 >40 MG/DL 05/05/2025 4:52 PM CDT [facility] LDL-C 160(H) <100 MG/DL 05/05/2025 4:52 PM CDT [facility] VLDL CALCULATION 14 5 - 28 MG/DL 05/05/2025 4:52 PM CDT [facility] CHOL/HDL RATIO 3.9 0.0 - 4.0 05/05/2025 4:52 PM CDT [facility] LDL/HDL 2.6(H) 0.41 - 2.13 05/05/2025 4:52 PM CDT [facility] NON HDL CHOLESTEROL 174(H) <140 MG/DL 05/05/2025 4:52 PM CDT [facility] 05/05/2025 10:0 2 AM CDT Pee Rider DO LABORATORY Final Re sult [facility] [address] [place] [address], * (ABNORMAL) CBC W/DIFF AUTOMATED (05/05/2025 10:02 AM CDT) WBC 5.09 4.00 - 10.80 x10'3/uL 05/05/2025 3:20 PM CDT [facility] RBC 4.84 4.10 - 5.40 x10'6/uL 05/05/2025 3:20 PM CDT [facility] HGB 14.7 12.0 - 16.0 G/DL 05/05/2025 3:20 PM CDT [facility] HCT 44.7 36.0 - 47.0 % 05/05/2025 3:20 PM CDT [facility] MCV 92.4 78.0 - 100.0 FL 05/05/2025 3:20 PM CDT [facility] MCH 30.4 27.0 - 31.0 PG 05/05/2025 3:20 PM CDT [facility] MCHC 32.9(L) 33.0 - 36.0 G/DL 05/05/2025 3:20 PM CDT [facility] RDW 12.1 11.5 - 14.5 % 05/05/2025 3:20 PM CDT [facility] PLT 356(H) 150 - 350 x10'3/uL 05/05/2025 3:20 PM CDT [facility] MPV 11.0(H) 7.4 - 10.4 FL 05/05/2025 3:20 PM CDT [facility] DIFFERENTIAL TYPE AUTOMATED DIFFERENTIAL 05/05/2025 3:20 PM CDT [facility] NEUTROPHILS % 57.1 % 05/05/2025 3:20 PM CDT [facility] LYMPHOCYTES % 26.3 % 05/05/2025 3:20 PM CDT [facility] MONOCYTES % 8.3 % 05/05/2025 3:20 PM CDT [facility] EOSINOPHILS % 6.9 % 05/05/2025 3:20 PM CDT [facility] BASOPHILS % 1.2 % 05/05/2025 3:20 PM CDT [facility] IMMATURE GRANS % 0.2 % 05/05/2025 3:20 PM CDT [facility] ABS. NEUTROPHILS 2.91 1.60 - 8.30 x10'3/uL 05/05/2025 3:20 PM CDT [facility] ABS. LYMPHOCYTES 1.34 0.80 - 4.70 x10'3/uL 05/05/2025 3:20 PM CDT [facility] ABS. MONOCYTES 0.42 0.00 - 1.50 x10'3/uL 05/05/2025 3:20 PM CDT [facility] ABS. EOSINOPHILS 0.35 0.00 - 0.40 x10'3/uL 05/05/2025 3:20 PM CDT [facility] ABS. BASOPHILS 0.06 0.00 - 0.20 x10'3/uL 05/05/2025 3:20 PM CDT [facility] ABS. IMMATURE GRANULOCYTES 0.01 0.00 - 0.03 x10'3/uL 05/05/2025 3:20 PM CDT [facility] 05/05/2025 10:0 2 AM CDT Pee Rider DO LABORATORY Final Re sult Performing Organization Address [facility] Co de Phone Number [facility], [place] [address] [place] [address], * MAMMOGRAM GENERIC (SCAN ORDER) (09/06/2024) Anatomical Region Laterality Modality Other 09/06/2024 [facility] Scanned SCANNING Final Resu lt * HEPATITIS C ANTIBODY (04/17/2023 8:32 AM CDT) HEPATITIS C AB NON-REACTI VE NON-REACT SHARLENE 04/17/2023 7:56 PM CDT [facility] Comment: ANTIBODIES TO HCV NOT DETECTED. DOES NOT EXCLUDE THE POSSIBILITY OF EXPOSURE TO HCV. 04/17/2023 8:32 AM CDT Pee Rider DO LABORATORY Final Re sult Performing Organization Address City/[facility] Co de Phone Number [facility] [address] [place] [address], [phone] * COLONOSCOPY GENERIC (02/11/2021) 02/11/2021 [employer] Scanned SCANNING Final Resu lt from Last 3 Months or Most Recently Relevant to Health Maintenance Insurance [facility] Member Subscriber Plan / Payer (Ef fective 2025-Present) Name:Jose Antonio Granados Relation to Subscriber:Self Name:Jose Antonio Granados Payer ID:Not on file Type:Not on file Address: [address] Care Teams Cigar Head Pegger Relationship Specialty Start Date End Date Pee Rider DO [address] [place] [id number] PCP - General FAMILY PRACTICE 04/17/23
--- OUTSIDE RECORDS SUMMARY | 2025-07-05 22:38 | XMS_ITS | Encounter Summary ---
Author Organization [facility] Address [address] [facility] [place] [address] Care Team Providers Care Entry Level Project Engineer Name Role Phone Unknown, Provider Primary Care Provider Unavaila ble Encounter Details Date Type Department Care Team (Late st Contact Info) Description 06/22/2025 Lab Requisition [facility] Physician Group - DermPath Lab [address] [facility] [place] [address] Nataly Ball DO [address] [facility] [address] [place] [address] Social History Tobacco Use Types Packs/Day Years Used Date Smoking Tobacco: Never Assessed Comments Unknown Sex and Gender Information Value Date Recorded Sex Assigned at Not on file Legal Sex 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 Gender Identity Not on file Sexual Orientation Not on file documented as of this encounter Plan of Treatment Not on file documented as of this encounter Procedures Procedure Name Priority Date/Time Associated Diagnosis Comments DERMATOPATHOLOGY Routine 06/22/2025 3:14 PM CDT documented in this encounter Results * DERMATOPATHOLOGY (06/22/2025 3:14 PM CDT) Case Report Dermatopathology Report Case: [id number] Authorizing Provider: Nataly Ball DO Collected: 06/22/2025 03:14 PM Ordering Location: [facility] Physician [facility] - Received: 06/26/2025 02:19 PM [facility] Lab [...] characteristic determined by the Dermatopathology Laboratory at [facility], directed by Dr. Janna Gaytan. These tests need not be, and therefore are not, approved by the [place] Food and Drug Administration. The tests are used for clinical purposes. Billing Codes Specimen Charges Stain Charges 15363 1 23526 1 4:38 PM CDT [facility]ER[facility]Y LABORATORY Embedded Images 4:38 PM CDT DERMATOPATHOLOGY LABORATORY Pathology/Cytolo gy TISSUE SPECIMEN FROM SKIN / Unknown 06/22/2025 3:14 PM CDT 06/26/2025 2:19 PM CDT us Nataly Ball DO LAB - PATHOLOGY/CYTOLOGY ORDERABLES Final Result DERMATOPATHOLOGY LABORATORY [facility] - Department of Dermatology [address], [address] [phone] documented in this encounter Visit Diagnoses Not on filedocumented in this encounter Care Teams Entry Level Project Engineer Relationship Specialty Start Date End Date Unknown, Provider PCP - General 06/02/25 documented as of this encounter
[2025-07-05 22:39] VITALS: BP 176/79; PULSE 60; PULSE 62; RESP 19; O2SAT 100
[2025-07-05 22:58] LABS: Hematocrit 42.5 % (37.0-47.0); Hemoglobin 14.3 g/dL (12.0-15.0); Immature Granulocyte Percent A 0.5 % (0-0.5); Lymphocytes Absolute Auto 1.34 K/mm3 (0.9-3.2); Mean Corpuscular HGB Conc 33.6 g/dl (32-36); Mean Corpuscular Hemoglobin 30.0 pg (26-34); Mean Corpuscular Volume 89.3 fl (80-100); Nucleated Red Blood Cells Absolute Auto 0.000 K/mm3 (0.0-0.012); Nucleated Red Blood Cells Perc 0.0 % (0.0-0.2); Platelet Count Result 338 k/mm3 (150-375); Red Blood Count 4.76 M/mm3 (4.2-5.4); White Blood Count 8.8 K/mm3 (4.5-10.0)
[2025-07-05 23:11] LABS: Alanine Aminotransferase 21 U/L (6-35); Albumin Level 4.4 g/dL (3.5-5.1); Alkaline Phosphatase 62 U/L (38-126); Anion Gap 7 mmol/L (4-12); Aspartate Amino Transferase 31 U/L (14-36); Bilirubin,Total 0.8 mg/dL (0.2-1.3); Blood Urea Nitrogen 9 mg/dL (7-17); Calcium 9.1 mg/dL (8.4-10.2); Carbon Dioxide 26 mmol/L (22-30); Chloride 104 mmol/L (98-107); Estimated CRCL calculation 86 ml/min; Estimated Glomerular Filt Rate > 60; Glucose 118 mg/dL (65-110); Magnesium 2.3 mg/dL (1.6-2.3); Potassium 3.8 mmol/L (3.4-5.0); Sodium 137 mmol/L (137-145); Total Protein 7.3 g/dL (6.3-8.2)
--- NOTE | 2025-07-05 23:13 | ED.DIZZY ---
HPI - Dizziness General Chief Complaint: Dizziness Stated Complaint: headache/dizziness Time Seen by Provider: 07/05/25 22:29 History of Present Illness HPI Narrative: Patient is a 54-year-old female who presents to the emergency department this evening complaining of a dizziness and feeling shaky and sweaty since 10:00 a.m. this morning. Patient states that the dizziness is room spinning and is worse with movement, specifically had movement. Patient decided to check her blood pressure given her symptoms and found to be elevated. Denies any history of high blood pressure. Patient states that she has always monitored her blood pressure because any time she traveled to the [facility] or she eats salty food her blood pressure will elevated but she has been able to control it by diet. She did admit that she was recently in [place] and when out with a bunch of friends and was not washing which she was eating. Denies any chest pain or shortness of breath. There are no additional modifying, alleviating, or precipitating factors at this time. Related Data Allergies Allergy/AdvReac Type Severity Reaction Status Date / Time No Known Allergies Allergy Verified 07/05/25 21:18 Review of Systems Review of Systems: All systems are reviewed and are negative unless stated otherwise in the HPI. REPLACED BY [facility] Past Medical History Medical History Colon cancer screening Hyperlipidemia Family History Family History Mother Patient's mother is in good health Father Patient's father is in good health Social History Social History Smoking status: Never smoker Second hand tobacco smoke exposure: Yes Alcohol intake: never Substance use type: does not use Living arrangements: with family Spiritual care concerns: No Exam Narrative: General: Alert, awake, afebrile, in no acute distress. HEENT: PERRL, no rhinorrhea, no post nasal drip, oropharynx clear. Neck: Trachea midline, no JVD, no lymphadenopathy. Cardiovascular: Regular rate and rhythm, no murmurs, rubs or gallops, no peripheral edema. Respiratory: Clear to auscultation bilaterally, no tachypnea, no wheezing, no rhonchi, no rubs, no respiratory distress. Abdomen: Soft, nontender, nondistended, no rebound, no guarding, no peritoneal signs. Musculoskeletal: No joint swelling or deformity, normal muscle tone. Skin: No rashes or petechia, no signs of infection. Psychiatric: Alert and oriented, normal behavior and judgment for situation. Neurological: Alert and oriented to person, place, and time. Follows all commands. No focal deficits, speech is clear and fluent. Course Vital Signs Vital signs: Vital Signs Temperature 97.1 F L 07/05/25 21:13 Pulse Rate 65 07/05/25 21:13 Respiratory Rate 16 07/05/25 21:13 Blood Pressure 190/97 H 07/05/25 21:13 Pulse Oximetry 100 07/05/25 21:13 Oxygen Delivery Room Air 07/05/25 21:13 Temperature 97.1 F L 07/05/25 21:13 Pulse Rate 60 07/06/25 00:12 Respiratory Rate 17 07/06/25 00:12 Blood Pressure 161/88 H 07/06/25 00:12 Pulse Oximetry 98 07/06/25 00:12 Oxygen Delivery Room Air 07/05/25 21:13 MDM - Dizziness MDM Narrative Medical decision making narrative: The patient was evaluated by myself in the emergency department. History is obtained from patient who is an independent historian and physical exam was performed. External medical records were reviewed at this time. IV was established and pertinent tests were ordered. EKG was obtained which revealed sinus bradycardia rate of 57 beats per minute, otherwise no evidence of arrhythmia or acute ischemia. EKG was independently interpreted by me and is currently pending official cardiology read. Laboratory results obtained revealing no acute process. Imaging studies obtained included CT brain without IV contrast which was independently interpreted by me revealing no acute intracranial process, which is pending final radiology interpretation. Differential diagnosis considerations include hypertensive urgency versus emergency, dehydration, electrolyte derangements, acute viral syndrome. Comorbidities impacting this visit include none. I have evaluated and discussed social determinants of health with the patient that could potentially impact subsequent diagnosis and treatment plans. Patient's blood pressure did remain elevated in the emergency department she was administered 10 mg of IV hydralazine with improvement of her blood pressure from 190 systolic to 160s. On repeat assessment of the patient, reevaluation revealed that the patient is doing well and is in no acute distress. Patient symptoms have improved since she arrived to our emergency department. Repeat vital signs were all reviewed and noted to be stable. Differential diagnosis and treatment plan were discussed with the patient at bedside. Patient agrees with discussion and after shared medical decision making agrees with discharge. All questions were answered to the patient's satisfaction. Patient will follow up with her PCP and ENT in 3-5 days. A script for amlodipine was sent to patient's pharmacy to use as needed for hypertension until she is seen by her primary care physician. Patient was provided with strict return precautions and instructed to return to the emergency department if any new or worsening symptoms develop. The patient was discharged in stable condition. Lab Data 07/05/25 22:52 07/05/25 22:52 Labs: Lab Results 07/05/25 Range/Units 22:52 WBC 8.8 (4.5-10.0) K/mm3 RBC 4.76 (4.2-5.4) M/mm3 Hgb 14.3 (12.0-15.0) g/dL Hct 42.5 (37.0-47.0) % MCV 89.3 (80-100) fl MCH 30.0 (26-34) pg MCHC 33.6 (32-36) g/dl RDW 12.3 (11.5-14.5) % Plt Count 338 (150-375) k/mm3 MPV 8.8 (7.4-10.4) fl Immature Gran % (Auto) 0.5 (0-0.5) % Neut % (Auto) 74.0 H (45.5-73.1) % Lymph % (Auto) 15.2 L (18.3-44.2) % Rogers % (Auto) 7.6 (2.6-8.5) % Eos % (Auto) 1.8 (0-4.4) % Baso % (Auto) 0.9 (0.2-1.2) % Lymph # (Auto) 1.34 (0.9-3.2) K/mm3 Rogers # (Auto) 0.7 H (0.1-0.6) K/mm3 Eos # (Auto) 0.2 (0-0.3) K/mm3 Baso # (Auto) 0.1 (0.0-0.1) K/mm3 Abs Immat Gran (auto) 0.04 H (0.00-0.031) K/mm3 Absolute Neuts (auto) 6.5 (1.3-6.7) K/mm3 Absolute Nucleated RBC 0.000 (0.0-0.012) K/mm3 Nucleated RBC % 0.0 (0.0-0.2) % Sodium 137 (137-145) mmol/L Potassium 3.8 (3.4-5.0) mmol/L Chloride 104 (98-107) mmol/L Carbon Dioxide 26 (22-30) mmol/L Anion Gap 7 (4-12) mmol/L BUN 9 (7-17) mg/dL Creatinine 0.52 L (0.7-1.0) mg/dL Estim Creat Clear Calc 86 ml/min Estimated GFR > 60 (59 - ) Glucose 118 H (65-110) mg/dL Calcium 9.1 (8.4-10.2) mg/dL Magnesium 2.3 (1.6-2.3) mg/dL Total Bilirubin 0.8 (0.2-1.3) mg/dL AST 31 (14-36) U/L ALT 21 (6-35) U/L Alkaline Phosphatase 62 (38-126) U/L Total Protein 7.3 (6.3-8.2) g/dL Albumin 4.4 (3.5-5.1) g/dL Discharge Plan Discharge Clinical Impression: Hypertension, Peripheral vertigo Patient Disposition: Home Condition: Improved Instructions: Antibiotic Form, Benign Paroxysmal Positional Vertigo (ED), Hypertension (ED) Additional Instructions: Please follow-up with your family doctor within the next week. Your instructed to keep a blood pressure log obstructive blood pressure twice every day until you are seen by your PCP. Your prescribed a low dose blood pressure medication, amlodipine to use as needed for an elevated blood pressure. Return to the ED if any new or worsening symptoms develop. You also provided with an ENT referral and instructed to call to set up follow-up appointment regarding your peripheral vertigo. Patient Language: Khmer Prescriptions: New amlodipine 5 mg tablet 5 mg PO DAILY Qty: 14 0RF Follow-up/Referrals: Michael Abreu MD [Physician, Ear, Nose, Throat] - 3 Days Adry,DO Pee [Primary Care Provider] - 1 Week Time of Disposition: 01:06
[2025-07-06 00:12] VITALS: BP 161/88; PULSE 60; RESP 17; O2SAT 98
[2025-07-06 01:30] VITALS: BP 148/82; PULSE 82; RESP 15; O2SAT 100
== END 2025-07-06 01:30 | disposition home or self-care (01) ==
PROVIDERS: Emergency Provider Emergency Medicine; PCP Student in an Organized Health Care Education/Training Program
DX: I10 Essential (primary) hypertension (principal); H81.399 Other peripheral vertigo, unspecified ear; E78.5 Hyperlipidemia, unspecified
CPT/HCPCS: 36415; 70450; 80053; 83735; 85025; 93005; 96374; 99284; J0360

== ENCOUNTER 2025-10-26 08:41 | Outpatient (CLI) | payer BC, SELFPAY ==
--- NOTE | ~2025-10-26 | MM_ITS ---
EXAMINATION: MM screening rowena BI w jessica HISTORY: Screening TECHNIQUE: Craniocaudal and mediolateral oblique 3-D tomosynthesis images were obtained and synthetic 2-D images were generated. CAD analysis was submitted and interpreted. COMPARISON: Comparison to multiple prior studies sequentially, with oldest reviewed study dated 11/19/2018. BREAST PARENCHYMAL COMPOSITION: Not dense: There are scattered areas of fibroglandular density. FINDINGS: There is no evidence of suspicious mass, calcification, or architectural distortion to suggest malignancy in either breast. There has been no suspicious interval change. IMPRESSION: 1. No mammographic evidence of malignancy. 2. Recommend routine screening mammography in one year. BI-RADS Category 1: Negative Reviewed, dictated and finalized at location O. L ENGINEER
--- OUTSIDE RECORDS SUMMARY | 2025-10-26 08:49 | XMS_ITS | Clinical Summary ---
Author Organization [facility] Address [address] [place] [address] Care Team Providers Care Stadium Manager Name Role Phone Unknown, Provider Primary Care Provider Unavaila ble Source Comments [facility],non-[facility] and Associated Physician Practices is amultiple site organization consisting of ambulatory clinics and hospital sitesin [place], [place], [place] and [place]. This disclosure is being madepursuant to the Care Everywhere program and may not contain all information available regarding this patient. 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
--- OUTSIDE RECORDS SUMMARY | 2025-10-26 08:50 | XMS_ITS | Clinical Summary ---
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 Gender Identity Not on file Sexual Orientation Not on file Last Filed Vital Signs Vital Sign Reading Time Taken Comments Blood Pressure 144/84 08/04/2024 4:10 PM CDT Pulse 69 08/04/2024 4:10 PM CDT Temperature 36.3 C (97.3 F) 08/04/2024 3:38 PM CDT Respiratory Rate 19 08/04/2024 4:10 PM CDT Oxygen Saturation 100% 08/04/2024 4:10 PM CDT Inhaled Oxygen Concentration - - Weight 63.5 kg (140 lb) 12/18/2023 5:58 AM TOP INSTALLER Height 149.9 cm (4' 11) 12/18/2023 5:58 AM TOP INSTALLER Body Mass Index 28.28 12/18/2023 5:58 AM TOP INSTALLER Plan of Treatment Health Maintenance Due Date Last Done Comments Cervical Cancer Screening 1969 Colon Cancer Screening-Colonoscopy 1969 Depression Screening 1969 Hepatitis C Screening 1969 Hepatitis B Screening 1987 Regular Well Visit/Exam 18-64 1987 Zoster Vaccine (1 of 2) 2019 Breast Cancer Screening-Mammogram 08/12/2024 08/12/2023, 07/18/2022 Covid-19 Vaccine ( - 2024-2 6 season) 2025 10/11/2021, 01/31/2021, 01/10/2021 Influenza Vaccine (#1) 2025 DTaP/Tdap/Td Vaccine (2 - Td or Tdap) 10/09/2033 10/09/2023 Pneumococcal vaccine <65 Aged Out No longer eligible based on patient's age to complete this topic Insurance LOCAL PLUS IN LOCAL PLUS IN Advance Directives For more information, please contact: [phone] * Full Code (Latest Code Status on File) Date Activated Date Inactivated Comments 12/18/2023 12:13 PM 12/19/2023 7:24 PM Care Teams Imaging Scheduler Relationship Specialty Start Date End Date Pee Rider DO [address] [place] [id number] PCP - General Family Medicine 12/18/23
--- OUTSIDE RECORDS SUMMARY | 2025-10-26 08:50 | XMS_ITS | Encounter Summary ---
Author Organization [facility] Address [address] [place] [address] Care Team Providers Care Superintendent Oil Field Drilling Name Role Phone Unknown, Provider Primary Care Provider Unavaila ble Encounter Details Date Type Department Care Team (Late st Contact Info) Description 06/22/2025 Lab Requisition [facility] - DermPath Lab [address] [place] [address] Nataly Ball DO [address] [place] [address] Social History Tobacco Use Types Packs/Day Years Used Date Smoking Tobacco: Never Assessed Comments Unknown Sex and Gender Information Value Date Recorded Sex Assigned at Not on file 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 - Received: 06/26/2025 02:19 PM DermPath Lab [...] characteristic determined by the Dermatopathology Laboratory at [facility], directed by Dr. Janna Gaytan. These tests need not be, and therefore are not, approved by the [place] Food and Drug Administration. The tests are used for clinical purposes. Billing Codes Specimen Charges Stain Charges 24432 1 33116 1 4:38 PM CDT DERMATOPATHOLOGY LABORATORY Embedded Images 4:38 PM CDT DERMATOPATHOLOGY LABORATORY Pathology/Cytolo gy TISSUE SPECIMEN FROM SKIN / Unknown 06/22/2025 3:14 PM CDT 06/26/2025 2:19 PM CDT us Nataly Ball DO LAB - PATHOLOGY/CYTOLOGY ORDERABLES Final Result DERMATOPATHOLOGY LABORATORY [facility] - Department of Dermatology [address], [address] [phone] documented in this encounter Visit Diagnoses Not on filedocumented in this encounter Care Teams Superintendent Oil Field Drilling Relationship Specialty Start Date End Date Unknown, Provider PCP - General 06/02/25 documented as of this encounter
== END 2025-10-26 08:42 | disposition home or self-care (01) ==
LOC: ANHFOHIMG 08:44
PROVIDERS: PCP Student in an Organized Health Care Education/Training Program; Visit Provider Obstetrics & Gynecology
DX: Z12.31 Encounter for screening mammogram for malignant neoplasm of breast (principal)
CPT/HCPCS: 77063; 77067